=== PATIENT | female | born 1995 | race African-American/Black ===

== ENCOUNTER 2016-06-01 08:53 | Emergency (ER) | payer SELFPAY ==
[~2016-06-01] VITALS: Ht 167.6 cm; Wt 91.0 kg
[~2016-06-01 08:53] MED LIST: BACT800T5 PO; ZOVI800T13 PO
[2016-06-01 08:55] VITALS: BP 114/54; PULSE 91; RESP 14; TEMP 98.2; O2SAT 97
[2016-06-01] MEDS ORDERED: SODIUM CHLOR 0.9% 1000 ML INJ 1,000 ML IV ONE (09:11)
--- NOTE | 2016-06-01 09:12 | PD ---
HPI Chief Complaint: Dizziness Time Seen by Provider: 09:03 Travel History International Travel<30 days: No Contact w/Intl Traveler<30days: No Traveled to known affect area: No History of Present Illness HPI 20yo F with no significant PMH presents to the ED with c/o room spinning and headache for 1 week. States she feels the room spinning constantly and worst with getting up. Had nausea in the beginning. Headache is frontal, bilateral and associated with photophobia. Denies any trauma, fever, neck pain, chest pain, sob, vomiting, abdominal pain, focal weakness or numbness. Pt had similar headache before. Pt last took exedrin last week. PFSH Past Medical History Medical History: Denies Significant Hx ?: Unknown LMP: 04/10/16 Past Surgical History Surgical History: No Previous Surgery Social History Alcohol Use: No Tobacco Use: No Substance Use: No Allergies-Medications (Allergen,Severity, Reaction): Coded Allergies: No Known Allergies (Unverified , 06/01/16) Reported Meds & Prescriptions Reported Meds & Active Scripts Active No Active Prescriptions or Reported Medications Review of Systems Except as stated in HPI: all other systems reviewed are Neg Physical Exam Narrative GENERAL: 20yo F not in distress. SKIN: Warm and dry. HEAD: Atraumatic. Normocephalic. EYES: Pupils equal and round. No scleral icterus. No injection or drainage. No nystagmus. ENT: TM wnl bilaterally. Throat clear. NECK: Trachea midline. No JVD. CARDIOVASCULAR: Regular rate and rhythm. No murmur appreciated. RESPIRATORY: No accessory muscle use. Clear to auscultation. Breath sounds equal bilaterally. GASTROINTESTINAL: Abdomen soft, non-tender, nondistended. No rebound tenderness or guarding. MUSCULOSKELETAL: No obvious deformities. No clubbing. No cyanosis. No edema. NEUROLOGICAL: Awake and alert. No obvious cranial nerve deficits. Motor grossly within normal limits. Normal speech. PSYCHIATRIC: Appropriate mood and affect; insight and judgment normal. Data Data Last Documented VS Vital Signs Date Time Temp Pulse Resp B/P Pulse Ox O2 Delivery O2 Flow Rate FiO2 06/01/16 10:03 81 16 116/56 83 16 109/55 93 16 122/56 06/01/16 08:55 98.2 97 Orders Electrocardiogram (06/01/16 ) Basic Metabolic Panel (Bmp) (06/01/16 09:11) Ed Urine Pregnancytest Poc (06/01/16 09:11) Complete Blood Count With Diff (06/01/16 09:11) Magnesium (Mg) (06/01/16 09:11) Meclizine (Antivert) (06/01/16 09:15) Ondansetron Inj (Zofran Inj) (06/01/16 09:15) Sodium Chloride 0.9% Flush (Ns Flush) (06/01/16 09:15) Sodium Chlor 0.9% 1000 Ml Inj (Ns 1000 M (06/01/16 09:11) Orthostatic Vital Signs (06/01/16 09:11) Ketorolac Inj (Toradol Inj) (06/01/16 09:15) Labs Laboratory Tests Test 06/01/16 09:40 White Blood Count 5.2 TH/MM3 Red Blood Count 5.67 MIL/MM3 Hemoglobin 10.1 GM/DL Hematocrit 33.4 % Mean Corpuscular Volume 58.9 FL Mean Corpuscular Hemoglobin 17.8 PG Mean Corpuscular Hemoglobin 30.2 % Concent Red Cell Distribution Width 19.5 % Platelet Count 301 TH/MM3 Mean Platelet Volume 8.6 FL Neutrophils (%) (Auto) 42.6 % Lymphocytes (%) (Auto) 40.5 % Monocytes (%) (Auto) 13.6 % Eosinophils (%) (Auto) 2.2 % Basophils (%) (Auto) 1.1 % Neutrophils # (Auto) 2.2 TH/MM3 Lymphocytes # (Auto) 2.1 TH/MM3 Monocytes # (Auto) 0.7 TH/MM3 Eosinophils # (Auto) 0.1 TH/MM3 Basophils # (Auto) 0.1 TH/MM3 CBC Comment AUTO DIFF Differential Comment AUTO DIFF CONFIRMED Sodium Level 135 MEQ/L Potassium Level 3.9 MEQ/L Chloride Level 104 MEQ/L Carbon Dioxide Level 22.7 MEQ/L Anion Gap 8 MEQ/L Blood Urea Nitrogen 11 MG/DL Creatinine 0.88 MG/DL Estimat Glomerular Filtration 97 ML/MIN Rate Random Glucose 93 MG/DL Calcium Level 8.8 MG/DL Magnesium Level 2.1 MG/DL [facility] Medical Decision Making Medical Screen Exam Complete: Yes Emergency Medical Condition: Yes Interpretation(s) EKG: NSR 86bpm. Normal axis. No ST segment elevation or depression. Laboratory Tests Test 06/01/16 09:40 White Blood Count 5.2 TH/MM3 (4.0-11.0) Red Blood Count 5.67 MIL/MM3 (4.00-5.30) Hemoglobin 10.1 GM/DL (11.6-15.3) Hematocrit 33.4 % (35.0-46.0) Mean Corpuscular Volume 58.9 FL (80.0-100.0) Mean Corpuscular Hemoglobin 17.8 PG (27.0-34.0) Mean Corpuscular Hemoglobin 30.2 % Concent (32.0-36.0) Red Cell Distribution Width 19.5 % (11.6-17.2) Platelet Count 301 TH/MM3 (150-450) Mean Platelet Volume 8.6 FL (7.0-11.0) Neutrophils (%) (Auto) 42.6 % (16.0-70.0) Lymphocytes (%) (Auto) 40.5 % (9.0-44.0) Monocytes (%) (Auto) 13.6 % (0.0-8.0) Eosinophils (%) (Auto) 2.2 % (0.0-4.0) Basophils (%) (Auto) 1.1 % (0.0-2.0) Neutrophils # (Auto) 2.2 TH/MM3 (1.8-7.7) Lymphocytes # (Auto) 2.1 TH/MM3 (1.0-4.8) Monocytes # (Auto) 0.7 TH/MM3 (0-0.9) Eosinophils # (Auto) 0.1 TH/MM3 (0-0.4) Basophils # (Auto) 0.1 TH/MM3 (0-0.2) CBC Comment AUTO DIFF Differential Comment AUTO DIFF CONFIRMED Sodium Level 135 MEQ/L (136-145) Potassium Level 3.9 MEQ/L (3.5-5.1) Chloride Level 104 MEQ/L (98-107) Carbon Dioxide Level 22.7 MEQ/L (21.0-32.0) Anion Gap 8 MEQ/L (5-15) Blood Urea Nitrogen 11 MG/DL (7-18) Creatinine 0.88 MG/DL (0.50-1.00) Estimat Glomerular Filtration 97 ML/MIN (>89) Rate Random Glucose 93 MG/DL (74-106) Calcium Level 8.8 MG/DL (8.5-10.1) Magnesium Level 2.1 MG/DL (1.5-2.5) Differential Diagnosis Peripheral vertigo vs. migraine headache vs. tension headache Narrative Course 20yo well appearing female here with spinning of the room and headache for 1 week. No red flags for headache. Will check labs, electrolytes, EKG and give meclizine, toradol, zofran and IVF NS. Labs reviewed, H/H low at 10.1/33.4. This is more elevated than prior and pt states she knows this and has history of anemia. CMP unremarkable. Pt reevaluated at bedside and feels better. Spinning and headache has improved. Return precautions given. Diagnosis Primary Impression: Vertigo Patient Instructions: General Instructions Departure Forms: Tests/Procedures Additional Instructions: Please follow up with your PMD in 3-7 days. Return to the ED if symptoms worsen. Med/Other Pt SpecificInfo: Prescription(s) given Scripts Meclizine 25 Mg Tab25 Mg PO TID PRN (VERTIGO) #10 TAB Ref 0 Prov:Michelle Jin DO 06/01/16 Disposition: 01 DISCHARGE HOME Condition: Stable Michelle Jin DO Jun 01, 2016 09:12
[2016-06-01] MEDS ORDERED: ONDANSETRON HCL 4 MG/2 ML VIAL IVP ONE (09:15)
[2016-06-01] MEDS ORDERED: MECLIZINE HCL 25 MG TAB PO ONE (09:15)
[2016-06-01] MEDS ORDERED: SODIUM CHLORIDE 0.9% FLUSH 5 ML FLUSH IVF PRN (09:15)
[2016-06-01] MEDS ORDERED: KETOROLAC TROMETHAMINE 30 MG/ML (IVP) VIAL IV PUSH ONE (09:15)
[2016-06-01 09:56] LABS: AUTOMATED NEUTROPHIL # 2.2 TH/MM3 (1.8-7.7); BASOPHIL # 0.1 TH/MM3 (0-0.2); BASOPHIL % 1.1 % (0.0-2.0); EOSINOPHIL # 0.1 TH/MM3 (0-0.4); EOSINOPHIL % 2.2 % (0.0-4.0); HEMATOCRIT 33.4 % (35.0-46.0); LYMPH % 40.5 % (9.0-44.0); LYMPHOCYTE # 2.1 TH/MM3 (1.0-4.8); MEAN CELL VOLUME 58.9 FL (80.0-100.0); MEAN CORPUSCULAR HEMOGLOBIN 17.8 PG (27.0-34.0); MEAN CORPUSCULAR HGB CONC 30.2 % (32.0-36.0); MONO % 13.6 % (0.0-8.0); NEUT % 42.6 % (16.0-70.0); PLATELET COUNT 301 TH/MM3 (150-450); RED BLOOD COUNT 5.67 MIL/MM3 (4.00-5.30); RED CELL DISTRIBUTION WIDTH 19.5 % (11.6-17.2); WHITE BLOOD COUNT 5.2 TH/MM3 (4.0-11.0)
[2016-06-01 10:00] LABS: HEMO FLAGS AUTO DIFF
[2016-06-01 10:03] VITALS: BP_SYST 109; BP_SYST 116; BP_SYST 122; BP_DIAS 55; BP_DIAS 56; RESP 16
[2016-06-01 10:17] LABS: BICARBONATE 22.7 MEQ/L (21.0-32.0); MAGNESIUM 2.1 MG/DL (1.5-2.5); POTASSIUM 3.9 MEQ/L (3.5-5.1)
[2016-06-01 10:35] LABS: SCAN/DIFF AUTO DIFF CONFIRMED
[2016-06-01] MEDS ORDERED: MECL-62 PO (12:17)
--- NOTE | 2016-06-01 13:50 | EKG ---
Date Performed: 06/01/2016 Time Performed: 09:16:34 PTAGE: 20 years EKG: Sinus rhythm NONSPECIFIC T-WAVE ABNORMALITY BORDERLINE ECG NO PREVIOUS TRACING DOCTOR: Noel Wyatt Interpretating Date/Time 06/01/2016 13:49:08
== END 2016-06-01 13:11 | disposition home or self-care (01) ==
LOC: NEPE 08:53
DX: R42 Dizziness and giddiness (principal)
CPT/HCPCS: 80048; 83735; 85025; 93005; 96374; 96375; 99284; J1885; J2405; J7030

== ENCOUNTER 2016-12-31 22:16 | Emergency (ER) | payer SELFPAY ==
[~2016-12-31] VITALS: Ht 170.2 cm; Wt 90.0 kg
[~2016-12-31 22:16] MED LIST changes: -BACT800T5 PO; +MECL-62 PO; -ZOVI800T13 PO
[2016-12-31 22:17] VITALS: BP 125/68; PULSE 78; RESP 16; TEMP 98.6; O2SAT 97
--- NOTE | 2017-01-01 01:54 | PD ---
HPI Chief Complaint: Bleeding Time Seen by Provider: 01:45 Travel History International Travel<30 days: No Contact w/Intl Traveler<30days: No Traveled to known affect area: No History of Present Illness HPI 21-year-old female here for evaluation of intermittent vaginal bleeding over the last month. Patient reports that the bleeding started again today, and she became concerned. She is having some suprapubic cramping. She is not sure if she is . She is sexually active. PFSH Past Medical History ?: Unknown Social History Alcohol Use: No Tobacco Use: No Substance Use: No Allergies-Medications (Allergen,Severity, Reaction): Coded Allergies: No Known Allergies (Unverified , 06/01/16) Reported Meds & Prescriptions Reported Meds & Active Scripts Active Meclizine (Meclizine HCl) 25 Mg Tab 25 Mg PO TID PRN Review of Systems Except as stated in HPI: all other systems reviewed are Neg Physical Exam Narrative GENERAL: Well-developed, well-nourished, sitting comfortably on stretcher, no apparent distress. SKIN: Focused skin assessment warm/dry. No pallor. HEAD: Atraumatic. Normocephalic. EYES: Pupils equal and round. No scleral icterus. No injection or drainage. ENT: Mucous membranes pink and moist. NECK: Trachea midline. No JVD. CARDIOVASCULAR: Regular rate and rhythm. RESPIRATORY: No accessory muscle use. Clear to auscultation. Breath sounds equal bilaterally. GASTROINTESTINAL: Abdomen soft, non-tender, nondistended. [employer] OPERATOR: Exam performed in the presence of female nurse. Normal external genitalia. Scant amount of brownish vaginal discharge. No abnormal masses. Normal-appearing cervix. No intravaginal lacerations. MUSCULOSKELETAL: No obvious deformities. No clubbing. No cyanosis. No edema. NEUROLOGICAL: Awake and alert. No obvious cranial nerve deficits. Motor grossly within normal limits. Normal speech. PSYCHIATRIC: Appropriate mood and affect; insight and judgment normal. Data Data Last Documented VS Vital Signs Date Time Temp Pulse Resp B/P (MAP) Pulse Ox O2 Delivery O2 Flow Rate FiO2 01/01/17 03:03 76 16 123/65 (84) 100 Room Air 12/31/16 22:17 98.6 Orders Orders Beta Hcg (Quant/Titer) (01/01/17 01:48) Complete Blood Count With Diff (01/01/17 01:48) Basic Metabolic Panel (Bmp) (01/01/17 01:48) Gc And Chlamydia Pcr (01/01/17 01:48) Wet Prep Profile (01/01/17 01:48) Urinalysis - C+S If Indicated (01/01/17 01:48) Ed Urine Pregnancytest Poc (01/01/17 01:48) Urine Culture (01/01/17 02:20) Labs Laboratory Tests Test 01/01/17 02:20 01/01/17 02:38 White Blood Count 6.9 TH/MM3 Red Blood Count 5.08 MIL/MM3 Hemoglobin 9.4 GM/DL Hematocrit 30.8 % Mean Corpuscular Volume 60.7 FL Mean Corpuscular Hemoglobin 18.5 PG Mean Corpuscular Hemoglobin Concent 30.5 % Red Cell Distribution Width 19.2 % Platelet Count 460 TH/MM3 Mean Platelet Volume 7.3 FL Neutrophils (%) (Auto) 44.4 % Lymphocytes (%) (Auto) 42.5 % Monocytes (%) (Auto) 10.0 % Eosinophils (%) (Auto) 2.0 % Basophils (%) (Auto) 1.1 % Neutrophils # (Auto) 3.1 TH/MM3 Lymphocytes # (Auto) 2.9 TH/MM3 Monocytes # (Auto) 0.7 TH/MM3 Eosinophils # (Auto) 0.1 TH/MM3 Basophils # (Auto) 0.1 TH/MM3 CBC Comment DIFF FINAL Differential Comment Urine Color YELLOW Urine Turbidity HAZY Urine pH 5.5 Urine Specific [place] 1.029 Urine Protein TRACE mg/dL Urine Glucose (UA) NEG mg/dL Urine Ketones NEG mg/dL Urine Occult Blood LARGE Urine Nitrite NEG Urine Bilirubin NEG Urine Urobilinogen LESS THAN 2.0 MG/DL Urine Leukocyte Esterase TRACE Urine RBC 2 /hpf Urine WBC 9 /hpf Urine Squamous Epithelial Cells 17 /hpf Urine Bacteria RARE /hpf Urine Mucus FEW /lpf Microscopic Urinalysis Comment CULTURE INDICATED Blood Urea Nitrogen 11 MG/DL Creatinine 0.87 MG/DL Random Glucose 103 MG/DL Calcium Level 9.2 MG/DL Sodium Level 140 MEQ/L Potassium Level 3.7 MEQ/L Chloride Level 106 MEQ/L Carbon Dioxide Level 25.8 MEQ/L Anion Gap 8 MEQ/L Estimat Glomerular Filtration Rate 98 ML/MIN Human Chorionic Gonadotropin, Quant LESS THAN 1 MIU/ML Clue Cells (Wet Prep) NONE SEEN Vaginal Trichomonas (Wet Prep) NONE SEEN Vaginal Yeast (Wet Prep) NONE SEEN MDM Medical Decision Making Medical Screen Exam Complete: Yes Emergency Medical Condition: Yes Differential Diagnosis Abnormal uterine bleeding, ectopic , spontaneous , PID, UTI, cystitis, BV Narrative Course Vital signs are within normal limits. CBC is remarkable for hemoglobin 9.4, hematocrit 30.8 which is around her baseline with low MCV. This is likely iron deficiency anemia. BMP is unremarkable. Beta hCG is negative. UA shows large occult blood, trace leukocyte esterase, 9 wbc's, rare bacteria, culture indicated. Wet prep is negative for yeast, negative for clue cells, negative for Trichomonas. Patient made aware of all findings. She is resting comfortably. She'll be started on Provera for her vaginal bleeding as well as Macrobid for her UTI. She is stable for discharge home with outpatient follow-up with an [facility] physician this week. I will give her the information to the [facility]. She was informed on when to return to the emergency department. She verbalizes understanding and agreement with plan. Diagnosis Primary Impression: Abnormal uterine bleeding Additional Impression: UTI (urinary tract infection) Qualified Codes: N30.01 - Acute cystitis with hematuria Referrals: [facility] 3 days Additional Instructions: Follow-up with an [facility] doctor this week. Return to the emergency department for worsening symptoms or any other concerns. Scripts Nitrofurantoin Monohydrate Macrocrystals (Macrobid) 100 Mg Cap 100 MG PO BID for Infection for 5 Days, CAP 0 Refills Prov: Lonnie Lee MD 01/01/17 Medroxyprogesterone Acetate (Provera) 10 Mg Tab 10 MG PO DAILY for Uterine bleeding, #10 TAB 0 Refills Start day 16 Prov: Lonnie Lee MD 01/01/17 Disposition: DISCHARGE HOME Condition: Stable Lonnie Lee MD Jan 01, 2017 01:54
[2017-01-01 02:34] LABS: BACTERIA, URINE RARE /hpf; BLOOD, URINE LARGE (NEG); COMMENT (UR) CULTURE INDICATED; CULTURE IF INDICATED CULTURE INDICATED; GLUCOSE,URINE NEG (NEG); KETONE, URINE NEG (NEG); MUCUS URINE FEW /lpf (OCC); NITRITE,URINE NEG (NEG); PH, URINE 5.5 (5.0-8.5); SQUAMOUS EPITHELIAL CELL URINE 17 /hpf (0-5); URINE COLOR YELLOW (YELLW/STRAW)
[2017-01-01 02:41] LABS: AUTOMATED NEUTROPHIL # 3.1 TH/MM3 (1.8-7.7); BASOPHIL # 0.1 TH/MM3 (0-0.2); BASOPHIL % 1.1 % (0.0-2.0); EOSINOPHIL # 0.1 TH/MM3 (0-0.4); HEMATOCRIT 30.8 % (35.0-46.0); HEMO FLAGS DIFF FINAL; LYMPH % 42.5 % (9.0-44.0); LYMPHOCYTE # 2.9 TH/MM3 (1.0-4.8); MEAN CELL VOLUME 60.7 FL (80.0-100.0); MEAN CORPUSCULAR HEMOGLOBIN 18.5 PG (27.0-34.0); MEAN CORPUSCULAR HGB CONC 30.5 % (32.0-36.0); NEUT % 44.4 % (16.0-70.0); PLATELET COUNT 460 TH/MM3 (150-450); RED BLOOD COUNT 5.08 MIL/MM3 (4.00-5.30); RED CELL DISTRIBUTION WIDTH 19.2 % (11.6-17.2); WHITE BLOOD COUNT 6.9 TH/MM3 (4.0-11.0)
[2017-01-01 02:45] LABS: ANION GAP 8 MEQ/L (5-15); BICARBONATE 25.8 MEQ/L (21.0-32.0); BLOOD UREA NITROGEN 11 MG/DL (7-18); CHLORIDE 106 MEQ/L (98-107); GLOMERULAR FILTRATION RATE 98 ML/MIN (>89); POTASSIUM 3.7 MEQ/L (3.5-5.1); SODIUM (NA) 140 MEQ/L (136-145)
[2017-01-01 02:49] LABS: BETA HCG QUANT LESS THAN 1 MIU/ML (0-5)
[2017-01-01 03:03] VITALS: BP 123/65; PULSE 76; RESP 16; O2SAT 100
[2017-01-01] MEDS ORDERED: NITROFURANTOIN MONOHYD MACROCR 100 MG CAP PO ONE (03:15)
[2017-01-01] MEDS ORDERED: medroxyPROGESTERone ACETATE 10 MG TAB PO ONE (03:15)
[2017-01-01] MEDS ORDERED: MACR100C2 PO (03:16)
[2017-01-01] MEDS ORDERED: PROV10TA PO (03:16)
[2017-01-01 04:52] LABS: CHLAMYDIA PCR NOT DETECTED (NOT DETECT); NEISSERIA PCR NOT DETECTED (NOT DETECT)
== END 2017-01-01 03:52 | disposition home or self-care (01) ==
LOC: NEPE 22:16
DX: N93.9 Abnormal uterine and vaginal bleeding, unspecified (principal); N39.0 Urinary tract infection, site not specified
CPT/HCPCS: 80048; 81001; 84702; 84703; 85025; 87086; 87210; 87491; 87591; 99284